=== PATIENT | male | born 1980 | race Caucasian/White ===

== ENCOUNTER 2017-02-26 23:03 | Emergency (ER) | payer OTHER ==
[~2017-02-26] VITALS: Ht 180.3 cm; Wt 86.5 kg
[2017-02-26] MEDS ORDERED: SODIUM CHLORIDE 0.9% 1,000 ML IV ONE (23:16)
[2017-02-26] MEDS ORDERED: KETOROLAC 30 MG/1 ML IVPush ONE (23:30)
[2017-02-26] MEDS ORDERED: HYDROmorphone 1 MG/ML, 1ML IV PRN (23:30)
[2017-02-26] MEDS ORDERED: ONDANSETRON 2MG/ML, 2ML IVP ONE (23:30)
[2017-02-26] MEDS ORDERED: SODIUM CHLORIDE FLUSH 10ML SYR IVF ONE (23:30)
[2017-02-26] MEDS ORDERED: SODIUM CHLORIDE 0.9% 1,000ML IVBOLUS ONE (23:30)
[2017-02-26] MEDS ORDERED: KETOROLAC 30 MG/1 ML ONE (23:42)
[2017-02-26 23:53] LABS: HEMATOCRIT 42.5 % (39.2-51.8); HEMOGLOBIN 14.6 g/dL (13.7-18.0); WHITE BLOOD COUNT 10.8 x10^3/uL (3.4-10)
[2017-02-27 00:01] LABS: BLOOD UREA NITROGEN 11 mg/dL (7-18)
[2017-02-27 00:08] LABS: ASPARTATE AMINO TRANSFERASE 19 U/L (15-37); IS PT STATUS REG ER OR PRE ER? YES
[2017-02-27 01:04] VITALS: BP 133/74
[2017-02-27] MEDS ORDERED: OMNIPAQUE 350 MG/ML, 100ML BOTTLE ONE (01:19)
[2017-02-27] MEDS ORDERED: LEVOFLOXACIN 750 MG TABLET ONE (01:44)
[2017-02-27] MEDS ORDERED: LEVOFLOXACIN 750 MG TABLET PO ONE (02:00)
== END 2017-02-27 02:07 | disposition home or self-care (01) ==
LOC: ED 23:59
DX: J15.9 Unspecified bacterial pneumonia (principal); Z87.891 Personal history of nicotine dependence; Z90.49 Acquired absence of other specified parts of digestive tract
CPT/HCPCS: 36415; 71020; 71275; 80053; 84484; 85025; 93005; 96374; 99285; J1885; J7030; Q9967